=== PATIENT | female | born 1985 | race Asian ===

== ENCOUNTER 2023-09-28 11:08 | Emergency (ER) | payer OTHER ==
[~2023-09-28] VITALS: Ht 157.5 cm; Wt 70.3 kg
[2023-09-28 11:32] VITALS: BP 127/107; PULSE 87; RESP 18; TEMP 98.5; O2SAT 98
[2023-09-28] MEDS ORDERED: LOPERAMIDE 2 MG CAP PO ONE (12:25)
[2023-09-28] MEDS ORDERED: ONDANSETRON 4 MG ODT PO ONE (12:25)
[2023-09-28 13:16] VITALS: BP 124/83; PULSE 66; RESP 18; TEMP 98; O2SAT 99
[2023-09-28] MEDS ORDERED: ONDA-188 PO (13:16)
[2023-09-28] MEDS ORDERED: LOPE-289 PO (13:16)
== END 2023-09-28 14:03 | disposition home or self-care (01) ==
LOC: MED 11:08
DX: R11.2 Nausea with vomiting, unspecified (principal); R19.7 Diarrhea, unspecified; R10.9 Unspecified abdominal pain; F31.9 Bipolar disorder, unspecified; F41.9 Anxiety disorder, unspecified; F12.90 Cannabis use, unspecified, uncomplicated; Z98.890 Other specified postprocedural states
CPT/HCPCS: 81025; 99283; Q0162

== ENCOUNTER 2024-01-07 21:32 | Emergency (ER) | payer OTHER ==
[~2024-01-07] VITALS: Ht 157.5 cm; Wt 68.0 kg
[~2024-01-07 21:32] MED LIST: LOPE-289 PO; ONDA-188 PO
[2024-01-07 22:22] VITALS: BP 131/85; PULSE 68; RESP 16; TEMP 97.4; O2SAT 98
[2024-01-08] MEDS ORDERED: ATA25 PO (00:35)
[2024-01-08 00:47] VITALS: BP 131/85; PULSE 68; RESP 16; TEMP 97.4; O2SAT 98
== END 2024-01-08 00:48 | disposition home or self-care (01) ==
LOC: MED 21:32
DX: F41.9 Anxiety disorder, unspecified (principal); G47.00 Insomnia, unspecified; Z76.0 Encounter for issue of repeat prescription; Z79.899 Other long term (current) drug therapy
CPT/HCPCS: 99283